=== PATIENT | female | born 1980 | race Caucasian/White ===

== ENCOUNTER 2017-05-23 21:22 | Emergency (ER) | payer OTHER ==
[2017-05-23 21:36] VITALS: BP 149/91; PULSE 87; RESP 16; TEMP 97.7
--- NOTE | 2017-05-23 22:09 | ED ---
General Adult HPI - General Chief complaint: Skin/Abscess/Foreign Body Stated complaint: Skin abcess Time Seen by Provider: 05/23/17 21:38 Source: patient Mode of arrival: ambulatory Limitations: no limitations - History of Present Illness Initial comments: This is a 37-year-old female who presents to the emergency department with chief complaint of "severely bad" hemorrhoid. Patients states she noticed a hemorrhoid about one week ago and it has progressively gotten larger. It is tender while sitting and during bowel movements. She states she has tried using steroid creams, AD ointment, and hot baths without relief. Patient was seen at [facility] for this and was advised to seek treatment in the emergency department.Denies fever, chills, chest pain, shortness of breath, abdominal pain , nausea, vomiting, dysuria, hematuria, numbess, tingling, headache or vision changes. - Related Data Previous Rx's Medication Instructions Recorded Hydrocodone/Acetaminophen [Bovey 1 tab PO Q4HR PRN #15 tab 05/23/17 5-325] Ibuprofen 600 mg PO Q6HR #30 tablet 05/23/17 Allergies Allergy/AdvReac Type Severity Reaction Status Date / Time latex Allergy Rash/Hives Verified 05/23/17 21:36 Review of Systems ROS Statement: Those systems with pertinent positive or pertinent negative responses have been documented in the HPI. ROS Other: All systems not noted in ROS Statement are negative. Past Medical History Past Medical History: No Reported History History of Any Multi-Drug Resistant Organisms: None Reported Past Surgical History: Section Past Psychological History: No Psychological Hx Reported Smoking Status: Current every day smoker Past Alcohol Use History: None Reported Past Drug Use History: Marijuana General Exam - General Exam Comments Initial Comments: General: Awake and alert, well-developed; in no apparent distress. HEENT: Head atraumatic, normocephalic. Pupils are equal, round and reactive to light. Extraocular movements intact. Neck: Supple. Normal ROM. Cardiovascular: Regular rate and rhythm. No murmurs, rubs or gallops. Chest symmetrical. Respiratory: Lungs clear to auscultation bilaterally. No wheezes, rales or rhonchi. Normal respiratory efffort with no use of accessory muscles. Musculoskeletal: Normal ROM. Pulses 2+ equal and palpable bilaterally. Genitourinary: External thrombosed hemorrhoid at left upper rectal area with ecchymosis tracking to left buttock. Skin: [place], warm and dry without rashes or lesions. Neurological: Alert and oriented x3. CN II-XII grossly intact. Speech is fluent and answers are appropriate. No focal neuro deficits. Psychiatric: Normal mood and affect. No overt signs of depression or anxiety noted. Limitations: no limitations Course Vital Signs 05/23/17 21:32 Temperature 97.7 F Pulse Rate 87 Respiratory 16 Rate Blood Pressure 149/91 O2 Sat by Pulse 98 Oximetry Medical Decision Making - Medical Decision Making This case was discussed in detail with attending physician Dr. Blanco, who also saw the patient. He is in agreement that this hemorrhoid is thrombosed and suggests referral to general surgery. Disposition Clinical Impression: Thrombosed external hemorrhoid Disposition: HOME SELF-CARE Condition: Good Instructions: Thrombosed Hemorrhoid (ED) Additional Instructions: Please take medications as prescribed. Please follow up with general surgery within 1-2 days. Return to ED if symptoms should worsen or you are unable to follow up with surgery. Prescriptions: Hydrocodone/Acetaminophen [Bovey 5-325] 1 tab PO Q4HR PRN #15 tab PRN Reason: Pain Ibuprofen 600 mg PO Q6HR #30 tablet Referrals: None,Stated [Primary Care Provider] - 1-2 days Gracy Adame DO [Doctor of Osteopathic Medicine] - 1-2 days Time of Disposition: 22:17
== END 2017-05-23 22:26 | disposition home or self-care (01) ==
LOC: EC 21:22
DX: K64.5 Perianal venous thrombosis (principal); F17.200 Nicotine dependence, unspecified, uncomplicated; Z91.040 Latex allergy status
CPT/HCPCS: 99282

== ENCOUNTER 2018-09-15 10:42 | Emergency (ER) | payer OTHER ==
[2018-09-15 10:47] VITALS: RESP 18
--- NOTE | 2018-09-15 11:12 | ED ---
General Adult HPI - General Chief complaint: Abdominal Pain Stated complaint: post surg abd pain Time Seen by Provider: 09/15/18 10:52 Source: patient, RN notes reviewed Mode of arrival: ambulatory Limitations: no limitations - History of Present Illness Initial comments: 38-year-old female with a past medical history of hysterectomy approximately 20 days ago presents to the emergency department for vaginal bleeding and abdominal pain. Patient states this bleeding started Saturday. Patient states she is having some spotting. Patient is unsure if this blood is from her urine or vagina. Patient also complains of a right lower quadrant abdominal pain. Patient states this is sharp in nature. Patient states she had a hysterectomy with cervix removal August 27. Ovaries were left in place. Patient states that her surgeon is in [place] and she did not want to go to [place] to see him so presented to this emergency department. Patient has no other complaints at this time including shortness of breath, chest pain, nausea or vomiting, headache, or visual changes. - Related Data Home Medications Medication Instructions Recorded Confirmed Cetirizine HCl [All Day Allergy] 10 mg PO DAILY 09/15/18 09/15/18 Cyclobenzaprine [Flexeril] 10 mg PO TID PRN 09/15/18 09/15/18 Ergocalciferol [Vitamin D2] 50,000 unit PO Q7D 09/15/18 09/15/18 Fenofibrate,Micronized 134 mg PO DAILY 09/15/18 09/15/18 [Fenofibrate] Ibuprofen 800 mg PO TID 09/15/18 09/15/18 Ranitidine HCl [Zantac] 150 mg PO BID 09/15/18 09/15/18 Previous Rx's Medication Instructions Recorded Cephalexin [Keflex] 500 mg PO Q6HR 5 Days cap 09/15/18 Allergies Allergy/AdvReac Type Severity Reaction Status Date / Time latex Allergy Rash/Hives Verified 09/15/18 10:47 Review of Systems ROS Statement: Those systems with pertinent positive or pertinent negative responses have been documented in the HPI. ROS Other: All systems not noted in ROS Statement are negative. Past Medical History Past Medical History: No Reported History History of Any Multi-Drug Resistant Organisms: None Reported Past Surgical History: Section, Hysterectomy Past Psychological History: No Psychological Hx Reported Smoking Status: Current every day smoker Past Alcohol Use History: None Reported Past Drug Use History: Marijuana General Exam Limitations: no limitations General appearance: alert, in no apparent distress Head exam: Present: atraumatic, normocephalic, normal inspection Eye exam: Present: normal appearance, PERRL, EOMI. Absent: scleral icterus, conjunctival injection, periorbital swelling ENT exam: Present: normal exam, mucous membranes moist Neck exam: Present: normal inspection, full ROM. Absent: tenderness, meningismus, lymphadenopathy Respiratory exam: Present: normal lung sounds bilaterally. Absent: respiratory distress, wheezes, rales, rhonchi, stridor Cardiovascular Exam: Present: regular rate, normal rhythm, normal heart sounds. Absent: systolic murmur, diastolic murmur, rubs, gallop, clicks GI/Abdominal exam: Present: soft, tenderness (RLQ and LLQ abdominal tenderness) , normal bowel sounds. Absent: distended, guarding, rebound, rigid External exam: Present: normal external exam. Absent: erythema, swelling, lesions, lacerations, ecchymosis Speculum exam: Present: normal speculum exam. Absent: erythema, vaginal discharge, cervical discharge, vaginal bleeding, foreign body, tissue, laceration, other (no dehiscence noted) Neurological exam: Present: alert, oriented X3, CN II-XII intact Psychiatric exam: Present: normal affect, normal mood Course Vital Signs 09/15/18 10:44 Temperature 98.0 F Pulse Rate 101 H Respiratory 18 Rate Blood Pressure 122/84 O2 Sat by Pulse 98 Oximetry Medical Decision Making - Medical Decision Making 38-year-old female with past medical history of hysterectomy 20 days ago presents for vaginal bleeding and abdominal pain. This has been ongoing for 3 days. On exam patient has mild tenderness noted in the lower abdominal area. Minimal tenderness on pelvic exam. No bleeding or dehiscence on pelvic exam. CT shows nonspecific appearance of uterus, cannot exclude inflammatory changes at uterus or surrounding pelvic fat. Nonspecific right ovarian lesion. At this time it is felt that patient must follow-up with her surgeon. Patient was given pain relief and is feeling better. She does appear to have a mild UTI will be given Keflex. Discussed returning if she has any worsening symptoms. - Lab Data Result diagrams: 09/15/18 12:25 09/15/18 12:25 Lab Results 09/15/18 09/15/18 09/15/18 Range/Units 12:17 12:25 12:25 WBC 9.9 (3.8-10.6) k/uL RBC 4.01 (3.80-5.40) m/uL Hgb 12.8 (11.4-16.0) gm/dL Hct 38.2 (34.0-46.0) % MCV 95.3 (80.0-100.0) fL MCH 31.8 (25.0-35.0) pg MCHC 33.4 (31.0-37.0) g/dL RDW 13.3 (11.5-15.5) % Plt Count 348 (150-450) k/uL Neutrophils % 70 % Lymphocytes % 19 % Monocytes % 3 % Eosinophils % 7 % Basophils % 0 % Neutrophils # 6.9 (1.3-7.7) k/uL Lymphocytes # 1.9 (1.0-4.8) k/uL Monocytes # 0.3 (0-1.0) k/uL Eosinophils # 0.7 (0-0.7) k/uL Basophils # 0.0 (0-0.2) k/uL Sodium 141 (137-145) mmol/L Potassium 4.6 (3.5-5.1) mmol/L Chloride 108 H (98-107) mmol/L Carbon Dioxide 26 (22-30) mmol/L Anion Gap 7 mmol/L BUN 13 (7-17) mg/dL Creatinine 0.75 (0.52-1.04) mg/dL Est GFR (CKD-EPI)AfAm >90 (>60 ml/min/1.73 sqM) Est GFR (CKD-EPI)NonAf >90 (>60 ml/min/1.73 sqM) Glucose 87 (74-99) mg/dL Calcium 9.6 (8.4-10.2) mg/dL Total Bilirubin 0.4 (0.2-1.3) mg/dL AST 18 (14-36) U/L ALT 25 (9-52) U/L Alkaline Phosphatase 68 (38-126) U/L Total Protein 7.5 (6.3-8.2) g/dL Albumin 4.1 (3.5-5.0) g/dL Amylase 42 (30-110) U/L Lipase 25 (23-300) U/L Urine Color Yellow Urine Appearance Cloudy H (Clear) Urine pH 7.0 (5.0-8.0) Ur Specific [place] 1.017 (1.001-1.035) Urine Protein Trace H (Negative) Urine Glucose (UA) Negative (Negative) Urine Ketones Negative (Negative) Urine Blood Large H (Negative) Urine Nitrite Negative (Negative) Urine Bilirubin Negative (Negative) Urine Urobilinogen <2.0 (<2.0) mg/dL Ur Leukocyte Esterase Large H (Negative) Urine RBC 3 (0-5) /hpf Urine WBC 21 H (0-5) /hpf Ur Squamous Epith Cells 6 H (0-4) /hpf Urine Bacteria Rare H (None) /hpf Disposition Clinical Impression: Abdominal pain Disposition: HOME SELF-CARE Condition: Good Instructions (If sedation given, give patient instructions): Abdominal Pain (ED ) Additional Instructions: Please follow-up with your [employer] surgeon. Please return here if you have any worsening symptoms. Otherwise take Tylenol for pain and Keflex for urinary tract infection Prescriptions: Cephalexin [Keflex] 500 mg PO Q6HR 5 Days cap Is patient prescribed a controlled substance at d/c from ED?: No Referrals: Gwen Shultz MD [Primary Care Provider] - 1-2 days Time of Disposition: 13:47
[2018-09-15] MEDS ORDERED: SODIUM CHLORIDE 0.9% 500 ML 500 ML IV STA (11:24)
[2018-09-15] MEDS ORDERED: KETOROLAC 30 MG/ML 1 ML VIAL IVP STA (11:24)
[2018-09-15 12:50] LABS: Appearance,Urine Cloudy (Clear); Bacteria,Urine Rare /hpf; Bilirubin,Urine Negative (Negative); Blood,Urine Large (Negative); Color,Urine Yellow; Glucose,Urine (UA) Negative (Negative); Ketones,Urine Negative (Negative); Leukocyte Esterase,Urine Large (Negative); Nitrite,Urine Negative (Negative); Protein,Urine Trace (Negative); RBC,Urine 3 /hpf (0-5); Specific Gravity,Urine 1.017 (1.001-1.035); Squamous Epithelial Cell,Urine 6 /hpf (0-4); Urobilinogen,Urine <2.0 mg/dL (<2.0); WBC,Urine 21 /hpf (0-5)
[2018-09-15 13:02] LABS: Basophils % (A) 0 %; Eosinophils # (A) 0.7 k/uL (0-0.7); Eosinophils % (A) 7 %; HCT 38.2 % (34.0-46.0); HGB 12.8 gm/dL (11.4-16.0); Lymphocytes # (A) 1.9 k/uL (1.0-4.8); Lymphocytes % (A) 19 %; MCH 31.8 pg (25.0-35.0); MCHC 33.4 g/dL (31.0-37.0); MCV 95.3 fL (80.0-100.0); Mean Platelet Volume 6.8; Monocytes # (A) 0.3 k/uL (0-1.0); Monocytes % (A) 3 %; Neutrophils # (A) 6.9 k/uL (1.3-7.7); Neutrophils % (A) 70 %; Platelet Count 348 k/uL (150-450); RBC 4.01 m/uL (3.80-5.40); RDW 13.3 % (11.5-15.5); WBC 9.9 k/uL (3.8-10.6)
[2018-09-15 13:12] LABS: ALT 25 U/L (9-52); AST 18 U/L (14-36); Albumin 4.1 g/dL (3.5-5.0); Alkaline Phosphatase 68 U/L (38-126); Amylase 42 U/L (30-110); Anion Gap 7 mmol/L; Blood Urea Nitrogen 13 mg/dL (7-17); Calcium 9.6 mg/dL (8.4-10.2); Carbon Dioxide 26 mmol/L (22-30); Chloride 108 mmol/L (98-107); Glucose 87 mg/dL (74-99); Lipase 25 U/L (23-300); Potassium 4.6 mmol/L (3.5-5.1); Sodium 141 mmol/L (137-145); Total Bilirubin 0.4 mg/dL (0.2-1.3); Total Protein 7.5 g/dL (6.3-8.2)
--- NOTE | 2018-09-15 13:17 | CT ---
EXAMINATION TYPE: CT abdomen pelvis w con DATE OF EXAM: 09/15/2018 HISTORY: Lower abdominal pain , Recent hysterectomy with fibroids removed August 27. CT DLP: 1832.6mGycm Automated Exposure Control for Dose Reduction was Utilized. CONTRAST: CT scan of the abdomen and pelvis is performed without oral but with IV Contrast, patient injected wi th 100 mL of Isovue 300. COMPARISON: None. FINDINGS: LUNG BASES: No significant abnormality is appreciated. LIVER/GB: Cholecystectomy clips are seen. Liver is diffusely low dense consistent with fatty infiltra tion. PANCREAS: No significant abnormality is seen. SPLEEN: No significant abnormality is seen. ADRENALS: No significant abnormality is seen. KIDNEYS: No significant abnormality is seen. BOWEL: Evaluation of bowel is suboptimal secondary to lack of enteric contrast. Small hiatal hernia i s present. There is no suspicious small or large bowel dilatation. Mild wall thickening in the sigmoi d colon near level of uterus is present presumed reactive change related to recent uterine surgery. UTERUS/ADNEXA: Uterus is somewhat poorly defined with some surrounding free fluid in the pelvis noted axial image 78. Central hypodense portion is seen. Right ovary is asymmetrically enlarged versus lef t ovary with hyperdense 2.9 cm lesion axial image 75 noted. Left ovary is normal in size axial image 73. LYMPH NODES: No greater than 1cm abdominal or pelvic lymph nodes are appreciated. OSSEOUS STRUCTURES: No significant abnormality is seen. OTHER: Developing vertical scar in the midline of the anterior abdominal wall near level of umbilicus is noted. IMPRESSION: Nonspecific appearance of uterus, cannot exclude inflammatory change at uterus or surroun ding pelvic fat. Some reactive inflammatory change adjacent sigmoid colon is not excluded. Nonspecifi c right ovarian lesion. Uterine and ovarian findings can be better evaluated with pelvic ultrasound i f felt necessary.
[2018-09-15 14:25] VITALS: BP 113/65; PULSE 77; TEMP 98.1
== END 2018-09-15 14:27 | disposition home or self-care (01) ==
LOC: EC 10:42
DX: R10.31 Right lower quadrant pain (principal); F17.200 Nicotine dependence, unspecified, uncomplicated; Z79.899 Other long term (current) drug therapy; Z91.040 Latex allergy status; Z98.890 Other specified postprocedural states; Z90.710 Acquired absence of both cervix and uterus
CPT/HCPCS: 36415; 80053; 82150; 83690; 85025; 81001; 87086; 74177; 99284; 96374; 96361; J1885; Q9967